=== PATIENT | female | born 1985 | race African-American/Black ===

== ENCOUNTER 2021-11-23 21:47 | Emergency (ER) | payer SELFPAY ==
[2021-11-24 18:54] LABS: SARS-CoV-2 PCR by NAA Not Detected (NotDetected)
== END 2021-11-23 22:23 | disposition home or self-care (01) ==
LOC: CSHERS 21:47
DX: R09.81 Nasal congestion (principal); Z20.822 Contact with and (suspected) exposure to COVID-19; E11.9 Type 2 diabetes mellitus without complications
CPT/HCPCS: 87804; 99283; U0003; U0005

== ENCOUNTER 2022-05-26 02:00 | Emergency (ER) | payer MEDICAID ==
[2022-05-26] MEDS ORDERED: Dexamethasone 4 mg/ml Vial ONE (06:30)
== END 2022-05-26 06:42 | disposition home or self-care (01) ==
LOC: CSHERS 02:00
DX: J10.1 Influenza due to other identified influenza virus with other respiratory manifestations (principal); E11.9 Type 2 diabetes mellitus without complications
CPT/HCPCS: 87804; 99283; J1100

== ENCOUNTER 2023-08-13 17:20 | Inpatient (IN) | payer MEDICAID, OTHER, SELFPAY ==
[2023-08-13] MEDS ORDERED: hydrALAZINE 20 MG/ML VIAL SLOW IVP PRN ×3 (17:42→18:44)
[2023-08-13 17:55] VITALS: BMI 39.3
[2023-08-13 18:10] LABS: Creatinine, Urine 212.12 mg/dL (47-110)
[2023-08-13] MEDS ORDERED: Magnesium Sulfate 20 gm/500 ml 20 GM/500 ML BAG ONE (18:28)
[2023-08-13 18:32] LABS: Amphetamine Not Detected (NotDetected); Barbiturates Screen Not Detected (NotDetected); Benzodiazepine Screen Not Detected (NotDetected); Cocaine Metabolite Screen Not Detected (NotDetected); Methadone Not Detected (NotDetected); Methamphetamine Not Detected (NotDetected); Opiate Screen Not Detected (NotDetected); Oxycodone Screen Not Detected (NotDetected); Phencyclidine (PCP) Not Detected (NotDetected); THC/Cannabinoid Screen Not Detected (NotDetected); Tricyclic Screen Not Detected (NotDetected)
[2023-08-13] MEDS ORDERED: Lorazepam 2 MG/ML VIAL SLOW IVP PRN (18:44)
[2023-08-13] MEDS ORDERED: Ondansetron PF 4 MG/2 ML Vial IVP PRN (18:44)
[2023-08-13] MEDS ORDERED: Ibuprofen 800 MG TAB PO PRN (18:44)
[2023-08-13] MEDS ORDERED: HYDROcodone/Acetaminophen 5/325 mg Tablet PO PRN ×2 (18:44)
[2023-08-13] MEDS ORDERED: Carboprost 250 MCG/ML AMP IM PRN (18:44)
[2023-08-13] MEDS ORDERED: Lidocaine 1% (PF) 30 ML VIAL SC PRN (18:44)
[2023-08-13] MEDS ORDERED: Promethazine HCl 25 MG/ML VIAL IM PRN (18:44)
[2023-08-13] MEDS ORDERED: Diphenoxylate HCl/Atropine Tablet PO PRN ×2 (18:44)
[2023-08-13] MEDS ORDERED: fentaNYL 50 mcg/mL 1 mL Vial SLOW IVP PRN (18:44)
[2023-08-13] MEDS ORDERED: Misoprostol 200 MCG TAB PR PRN (18:44)
[2023-08-13] MEDS ORDERED: Labetalol HCl 100 MG/20 ML VIAL SLOW IVP PRN ×2 (18:44)
[2023-08-13] MEDS ORDERED: Calcium Gluc 4.6 MEQ/10 ML (100 MG/ML) SLOW IVP PRN (18:44)
[2023-08-13] MEDS ORDERED: Penicillin G Potassium 5 MILL.UNITS in Sodium Chloride 0.9% 100 ML IVPB SCH (18:45)
[2023-08-13] MEDS ORDERED: Oxytocin 30 units/NS 500 ML 500 ML IV SCH ×2 (18:45)
[2023-08-13] MEDS ORDERED: Glucagon 1 MG/ML KIT IM PRN (19:00)
[2023-08-13] MEDS ORDERED: Dextrose 50% Abboject 50 ML SYRINGE SLOW IVP PRN (19:00)
[2023-08-13] MEDS ORDERED: HumaLOG 300 UNITS/3 ML VIAL SC PRN (19:00)
[2023-08-13] MEDS ORDERED: Dextrose 5% in Water 1,000 ML IV PRN (19:00)
[2023-08-13 19:34] LABS: ALT (SGPT) 20 U/L (8-55); AST (SGOT) 21 U/L (5-34); Albumin 3.4 g/dL (3.5-5.0); Alkaline Phosphatase 183 U/L (40-110); Anion Gap 13 mmol/L (10-20); BUN (Urea Nitrogen) 9 mg/dL (7.0-18.7); Bilirubin, Total 0.2 mg/dL (0.2-1.2); Calc. Creatinine Clearance 177 mL/min (70-130); Calcium 9.5 mg/dL (7.8-10.44); Carbon Dioxide 24 mmol/L (22-29); Chloride 106 mmol/L (98-107); Estimated GFR 100; Globulin 3.5 g/dL (2.4-3.5); Glucose 75 mg/dL (70-105); Potassium 4.3 mmol/L (3.5-5.1); Protein, Total 6.9 g/dL (6.0-8.3); Sodium 139 mmol/L (136-145)
[2023-08-13 19:40] LABS: #Eosinphils 0.2 10x3/uL (0.0-0.5); #Monocytes 0.9 10x3/uL (0.0-1.1); #Neutrophils 6.3 10x3/uL (1.5-8.4); %Basophils 0.4 % (0.0-2.0); %Eosinophils 1.8 % (0.0-6.0); %Lymphocytes 29.5 % (18.0-47.0); %Monocytes 8.8 % (0.0-10.0); Hematocrit 33.8 % (34.9-44.5); Hemoglobin 11.3 g/dL (12.0-15.5); Mean Corpuscular HGB CONC 33.4 g/dL (32.0-36.0); Mean Corpuscular Hemoglobin 25.9 pg (27.0-33.0); Mean Corpuscular Volume 77.3 fl (81.6-98.3); Mean Platelet Volume 10.7 fl (7.4-10.4); Platelet Count 286 10x3/uL (150-450); RBC Distribution Width 13.9 % (11.5-14.5); Red Blood Cell (RBC) Count 4.37 10x6/uL (3.90-5.03); White Blood Cell (WBC) Count 10.7 10x3/uL (3.5-10.5)
[2023-08-13] MEDS ORDERED: Penicillin G 2.5 MILL.units 2.5 MILL.UNITS in Premix 1 BAG IVPB SCH (22:45)
[2023-08-13 23:00] LABS: HBSAg Index 0.16 S/CO (0-0.99); Hep B Surf Ag - L&D Non-Reactive S/CO (NonReactive)
[2023-08-13 23:02] LABS: Syphilis Antibody Nonreactive (Nonreactive); Syphilis Antibody Index 0.09 S/CO (<1.00 Non-Reactive)
[2023-08-13] MEDS: Acetaminophen 500 MG TAB PO PRN (23:55)
[2023-08-14] MEDS: Misoprostol 100 MCG TAB VAG SCH ×2 (09:34→12:47)
[2023-08-14] MEDS: Acetaminophen 500 MG TAB PO PRN (12:24)
[2023-08-14] MEDS: Magnesium Sulfate 20 gm/500 ml 20 GM/500 ML BAG IVPB SCH ×2 (12:26→21:32)
[2023-08-14] MEDS ORDERED: diphenhydrAMINE 25 MG CAP PO SCH (12:45)
[2023-08-14] MEDS ORDERED: CEFAZOLIN 2 GM VIAL ONE (14:30)
[2023-08-14] MEDS ORDERED: Famotidine/PF 20 mg/2ml Vial SLOW IVP PRN (14:36)
[2023-08-14] MEDS ORDERED: Bicitra 30 ML UDCUP PO PRN (14:36)
[2023-08-14] MEDS ORDERED: CEFAZOLIN 2 GM in Sodium Chloride 0.9% 100 ML IVPB SCH (14:45)
[2023-08-14] MEDS ORDERED: Promethazine HCl 25 MG SUPP PR PRN ×2 (14:53→16:03)
[2023-08-14] MEDS ORDERED: Moisturizing Cream (Eucerin) 113 GM JAR TOP PRN ×2 (14:53→16:03)
[2023-08-14] MEDS ORDERED: fentaNYL 50 mcg/mL 1 mL Vial SLOW IVP PRN ×3 (14:53→20:28)
[2023-08-14] MEDS ORDERED: Promethazine HCl 25 MG/ML VIAL IM PRN ×2 (14:53→16:03)
[2023-08-14] MEDS ORDERED: Ondansetron PF 4 MG/2 ML Vial IVP PRN ×4 (14:53→16:03)
[2023-08-14] MEDS ORDERED: Naloxone HCl 0.4 mg/ml Vial IV PRN ×2 (14:53→16:03)
[2023-08-14] MEDS ORDERED: diphenhydrAMINE 50 MG/ML VIAL IVP PRN ×2 (14:53→16:03)
[2023-08-14] MEDS ORDERED: Naloxone HCl 0.4 mg/ml Vial IVP PRN ×4 (14:53→16:03)
[2023-08-14] MEDS ORDERED: Ketorolac Tromethamine 30 MG (1 mL) VIAL IVP PRN ×2 (14:53→16:03)
[2023-08-14] MEDS ORDERED: Meperidine HCl/PF 25 MG (1 mL) VIAL SLOW IVP PRN ×2 (14:53→16:03)
[2023-08-14] MEDS ORDERED: Morphine PF 10 MG/10 ML VIAL ONE (14:59)
[2023-08-14] MEDS ORDERED: PHENYLEPHRINE-NS 100 MCG/ML 10 ML SYRINGE ONE ×2 (14:59→16:38)
[2023-08-14] MEDS ORDERED: Ketorolac Tromethamine 30 MG (1 mL) VIAL ONE (14:59)
[2023-08-14] MEDS ORDERED: Phenylephrine 40 MG/NS 250 ML 250 ML ONE (14:59)
[2023-08-14] MEDS ORDERED: Dexamethasone 4 mg/ml Vial ONE (14:59)
[2023-08-14] MEDS ORDERED: Oxytocin 10 UNITS/ML VIAL ONE ×3 (14:59→16:34)
[2023-08-14] MEDS ORDERED: Ondansetron PF 4 MG/2 ML Vial ONE (14:59)
[2023-08-14] MEDS ORDERED: Communication Order-Pharmacy FS SCH ×2 (15:00→16:15)
[2023-08-14] MEDS ORDERED: Ketorolac Tromethamine 30 MG (1 mL) VIAL IVP SCH ×3 (15:30→18:00)
[2023-08-14] MEDS ORDERED: fentaNYL 50 mcg/mL 1 mL Vial ONE (15:33)
[2023-08-14] MEDS ORDERED: Tranexamic Acid 1,000 MG/10 ML VIAL ONE ×2 (16:04→16:07)
[2023-08-14 16:45] LABS: Analyzer IN Cardio CS NICU; RapidComm Collect By CBN; pH (Cord, venous) 7.261 (7.250-7.350)
[2023-08-14 16:46] LABS: Analyzer IN Cardio CS NICU; RapidComm Collect By CBN
[2023-08-14] MEDS ORDERED: Erythromycin Base 0.5% Oint 1 GM TUBE ONE (16:56)
[2023-08-14] MEDS ORDERED: Phytonadione Neonatal 1 MG/0.5 ML AMP ONE (16:56)
[2023-08-14] MEDS ORDERED: Carboprost 250 MCG/ML AMP ONE (17:44)
[2023-08-14] MEDS ORDERED: NIFEdipine XL 30 MG ER.TAB PO SCH (18:00)
[2023-08-14] MEDS ORDERED: PACU-Morphine 4MG/ML VIAL SLOW IVP PRN (20:00)
[2023-08-14] MEDS ORDERED: Morphine 4 MG/ML VIAL SLOW IVP PRN (20:27)
[2023-08-15 04:34] LABS: Hematocrit 29.6 % (34.9-44.5); Hemoglobin 9.5 g/dL (12.0-15.5); Mean Corpuscular HGB CONC 32.1 g/dL (32.0-36.0); Mean Corpuscular Hemoglobin 25.2 pg (27.0-33.0); Mean Corpuscular Volume 78.5 fl (81.6-98.3); Mean Platelet Volume 10.4 fl (7.4-10.4); Platelet Count 269 10x3/uL (150-450); RBC Distribution Width 14.2 % (11.5-14.5); Red Blood Cell (RBC) Count 3.77 10x6/uL (3.90-5.03); White Blood Cell (WBC) Count 11.1 10x3/uL (3.5-10.5)
[2023-08-15 04:49] LABS: ALT (SGPT) 28 U/L (8-55); AST (SGOT) 33 U/L (5-34); Albumin 2.9 g/dL (3.5-5.0); Alkaline Phosphatase 147 U/L (40-110); Anion Gap 15 mmol/L (10-20); BUN (Urea Nitrogen) 8 mg/dL (7.0-18.7); Bilirubin, Total 0.5 mg/dL (0.2-1.2); Calc. Creatinine Clearance 187 mL/min (70-130); Carbon Dioxide 21 mmol/L (22-29); Chloride 99 mmol/L (98-107); Estimated GFR 107; Globulin 3.6 g/dL (2.4-3.5); Glucose 125 mg/dL (70-105); Potassium 4.5 mmol/L (3.5-5.1); Protein, Total 6.5 g/dL (6.0-8.3); Sodium 130 mmol/L (136-145)
[2023-08-15] MEDS ORDERED: Calcium Gluc 4.6 MEQ/10 ML (100 MG/ML) SLOW IVP PRN (06:59)
[2023-08-15] MEDS ORDERED: Labetalol HCl 100 MG/20 ML VIAL SLOW IVP PRN ×2 (06:59)
[2023-08-15] MEDS ORDERED: Misoprostol 200 MCG TAB PR PRN (06:59)
[2023-08-15] MEDS ORDERED: Lorazepam 2 MG/ML VIAL SLOW IVP PRN (06:59)
[2023-08-15] MEDS ORDERED: Ondansetron PF 4 MG/2 ML Vial IVP PRN (06:59)
[2023-08-15] MEDS ORDERED: hydrALAZINE 20 MG/ML VIAL SLOW IVP PRN ×3 (06:59)
[2023-08-15] MEDS ORDERED: Lanolin Ointment 7 GM TUBE TOP PRN (06:59)
[2023-08-15] MEDS ORDERED: Simethicone Chewable 80 MG TAB PO PRN (06:59)
[2023-08-15] MEDS ORDERED: Boostrix 0.5 ML (Tdap) VIAL (>/=7 yrs of age) IM ONE (06:59)
[2023-08-15] MEDS ORDERED: Oxytocin 30 units/NS 500 ML 500 ML IV SCH (07:00)
[2023-08-15] MEDS: Magnesium Sulfate 20 gm/500 ml 20 GM/500 ML BAG IVPB SCH (07:39)
[2023-08-15] MEDS: Prenatal Vitamin 1 TAB PO SCH (09:14)
[2023-08-15] MEDS: Ferrous Sulfate 325 MG TAB PO SCH ×2 (09:14→21:57)
[2023-08-15] MEDS: NIFEdipine XL 30 MG ER.TAB PO SCH (09:20)
[2023-08-15] MEDS: Docusate 100 MG CAP PO SCH ×2 (13:00→18:01)
[2023-08-15] MEDS: Acetaminophen 500 MG TAB PO SCH (13:01)
[2023-08-15] MEDS ORDERED: Ibuprofen 800 MG TAB PO SCH (22:00)
[2023-08-16] MEDS: HYDROcodone/Acetaminophen 5/325 mg Tablet PO PRN ×5 (01:15→21:01)
[2023-08-16 03:42] LABS: Hemoglobin 9.5 g/dL (12.0-15.5); Mean Corpuscular HGB CONC 33.9 g/dL (32.0-36.0); Mean Corpuscular Hemoglobin 26.3 pg (27.0-33.0); Mean Corpuscular Volume 77.6 fl (81.6-98.3); Platelet Count 269 10x3/uL (150-450); RBC Distribution Width 14.5 % (11.5-14.5); Red Blood Cell (RBC) Count 3.61 10x6/uL (3.90-5.03); White Blood Cell (WBC) Count 11.2 10x3/uL (3.5-10.5)
[2023-08-16] MEDS: diphenhydrAMINE 25 MG CAP PO PRN ×2 (05:15→21:06)
[2023-08-16] MEDS: Ferrous Sulfate 325 MG TAB PO SCH (07:16)
[2023-08-16] MEDS: Ibuprofen 800 MG TAB PO SCH ×3 (08:24→21:06)
[2023-08-16] MEDS: Docusate 100 MG CAP PO SCH ×2 (08:24→21:01)
[2023-08-16] MEDS: Prenatal Vitamin 1 TAB PO SCH (08:24)
[2023-08-16] MEDS: NIFEdipine XL 30 MG ER.TAB PO SCH (08:27)
[2023-08-16] MEDS ORDERED: NIFEdipine XL 30 MG ER.TAB PO SCH (09:45)
[2023-08-17] MEDS: HYDROcodone/Acetaminophen 5/325 mg Tablet PO PRN ×4 (04:01→21:02)
[2023-08-17] MEDS: Ferrous Sulfate 325 MG TAB PO SCH ×3 (04:02→21:01)
[2023-08-17] MEDS: Ibuprofen 800 MG TAB PO SCH ×3 (06:44→23:50)
[2023-08-17] MEDS: Docusate 100 MG CAP PO SCH ×2 (08:04→21:02)
[2023-08-17] MEDS: Prenatal Vitamin 1 TAB PO SCH (08:04)
[2023-08-17] MEDS: NIFEdipine XL 90 MG ER.TAB PO SCH (08:05)
[2023-08-17] MEDS ORDERED: NIFEdipine XL 60 MG ER.TAB PO SCH (09:00)
[2023-08-17] MEDS: Lantus 1000 UNITS/10 ML VIAL SC SCH (10:42)
[2023-08-17] MEDS: diphenhydrAMINE 25 MG CAP PO PRN (21:06)
[2023-08-18] MEDS: HYDROcodone/Acetaminophen 5/325 mg Tablet PO PRN ×2 (02:43→23:15)
[2023-08-18] MEDS: Ibuprofen 800 MG TAB PO SCH ×3 (06:07→23:12)
[2023-08-18] MEDS: Acetaminophen 500 MG TAB PO SCH (07:04)
[2023-08-18] MEDS: Misoprostol 100 MCG TAB VAG SCH ×2 (07:04→07:06)
[2023-08-18] MEDS ORDERED: Furosemide 20 MG (2 mL) VIAL SLOW IVP SCH (08:00)
[2023-08-18] MEDS: Lantus 1000 UNITS/10 ML VIAL SC SCH (08:21)
[2023-08-18] MEDS: Prenatal Vitamin 1 TAB PO SCH (08:21)
[2023-08-18] MEDS: Docusate 100 MG CAP PO SCH ×2 (08:21→21:21)
[2023-08-18] MEDS: NIFEdipine XL 90 MG ER.TAB PO SCH (08:21)
[2023-08-18] MEDS: Ferrous Sulfate 325 MG TAB PO SCH ×2 (08:21→21:21)
[2023-08-18] MEDS ORDERED: Labetalol HCl 200 MG TAB PO SCH (11:00)
[2023-08-18] MEDS: Labetalol HCl 200 MG TAB PO SCH (21:21)
[2023-08-18] MEDS: diphenhydrAMINE 25 MG CAP PO PRN (22:05)
[2023-08-19] MEDS: diphenhydrAMINE 25 MG CAP PO PRN (02:15)
[2023-08-19] MEDS: HYDROcodone/Acetaminophen 5/325 mg Tablet PO PRN ×2 (04:12→20:03)
[2023-08-19] MEDS: Ibuprofen 800 MG TAB PO SCH ×2 (06:12→14:31)
[2023-08-19] MEDS: Docusate 100 MG CAP PO SCH ×2 (08:02→20:02)
[2023-08-19] MEDS: NIFEdipine XL 90 MG ER.TAB PO SCH (08:02)
[2023-08-19] MEDS: Labetalol HCl 200 MG TAB PO SCH ×2 (08:02→20:02)
[2023-08-19] MEDS: Ferrous Sulfate 325 MG TAB PO SCH ×2 (08:03→20:02)
[2023-08-19] MEDS: Prenatal Vitamin 1 TAB PO SCH (08:03)
[2023-08-19] MEDS: Lantus 1000 UNITS/10 ML VIAL SC SCH (08:03)
[2023-08-19 19:25] VITALS: BP 158/88; TEMP 98.3
== END 2023-08-19 20:09 | disposition home or self-care (01) | DRG 788 ==
LOC: CSHLD/OP 17:20 → CSHLD 18:54 → CSHPP 08-15 18:30
PROVIDERS: ADMIT Obstetrics & Gynecology; ATTEND Obstetrics & Gynecology
PROC: 10D00Z1 Extraction of Products of Conception, Low, Open Approach (ICD-10-PCS; principal; 2023-08-14)
PROC: 3E0P7VZ Introduction of Hormone into Female Reproductive, Via Natural or Artificial Opening (ICD-10-PCS; 2023-08-14)
PROC: 3E0334Z Introduction of Serum, Toxoid and Vaccine into Peripheral Vein, Percutaneous Approach (ICD-10-PCS; 2023-08-14)
DX: O14.14 Severe pre-eclampsia complicating childbirth (principal); O24.429 Gestational diabetes mellitus in childbirth, unspecified control; Z3A.34 34 weeks gestation of pregnancy; O99.824 Streptococcus B carrier state complicating childbirth; Z37.0 Single live birth; O76 Abnormality in fetal heart rate and rhythm complicating labor and delivery; M79.89 Other specified soft tissue disorders; O99.892 Other specified diseases and conditions complicating childbirth; O99.214 Obesity complicating childbirth; O09.513 Supervision of elderly primigravida, third trimester; E78.5 Hyperlipidemia, unspecified; A59.9 Trichomoniasis, unspecified; O26.893 Other specified pregnancy related conditions, third trimester; Z67.21 Type B blood, Rh negative
CPT/HCPCS: 36415; 36416; 51702; 80053; 80306; 82570; 82805; 84156; 85025; 85027; 85461; 86780; 86850; 86900; 86901; 87340; 88307; 90384; 96372; 99285; J0360; J1100; J1815; J1885; J1940; J2270; J2274; J2405; J2590; J3010; J3475; J3490

== ENCOUNTER 2023-09-15 22:05 | Inpatient (IN) | payer MEDICAID, OTHER ==
[2023-09-15] MEDS ORDERED: Ondansetron PF 4 MG/2 ML Vial IVP PRN (23:00)
[2023-09-15] MEDS ORDERED: Docusate 100 MG CAP PO PRN (23:00)
[2023-09-15] MEDS ORDERED: Promethazine HCl 25 MG/ML VIAL IM PRN (23:00)
[2023-09-15] MEDS ORDERED: Lorazepam 2 MG/ML VIAL SLOW IVP PRN (23:00)
[2023-09-15] MEDS ORDERED: hydrALAZINE 20 MG/ML VIAL SLOW IVP PRN ×2 (23:00)
[2023-09-15] MEDS ORDERED: Labetalol HCl 100 MG/20 ML VIAL SLOW IVP PRN ×3 (23:00)
[2023-09-15] MEDS ORDERED: Zolpidem Tartrate 5 MG TAB PO PRN (23:00)
[2023-09-15] MEDS ORDERED: Calcium Gluc 4.6 MEQ/10 ML (100 MG/ML) SLOW IVP PRN (23:00)
[2023-09-15] MEDS: Lactated Ringer's 1,000 ML IV SCH (23:22)
[2023-09-15] MEDS: Magnesium Sulfate 20 gm/500 ml 20 GM/500 ML BAG IVPB SCH (23:24)
[2023-09-16 00:06] VITALS: BMI 36.4
[2023-09-16] MEDS: Labetalol HCl 200 MG TAB PO SCH ×2 (00:25)
[2023-09-16 00:48] LABS: Bilirubin Neg (Negative); Blood, Urine 150 (Negative); Clarity Clear (Clear); Glucose, Urine (Dipstick) Normal (Negative); Ketone, Urine Negative (Negative); Leukocyte Negative (Negative); Nitrite Negative (Negative); Protein, Urine (Dipstick) 30 mg/dl (Neg-Trace)
[2023-09-16 00:58] LABS: Bacteria/HPF None Seen HPF (None Seen); CAUTI Indications for Culture Pelvic or flank pain; Squamous Epithelial 0-3 HPF (0-3); Transitional Epithelial 0-3 HPF (None Seen); WBC/HPF 0-3 HPF (0-3)
[2023-09-16 01:01] LABS: Urine Culture Reflex No No
[2023-09-16 03:54] LABS: Hematocrit 30.7 % (34.9-44.5); Hemoglobin 9.8 g/dL (12.0-15.5); Mean Corpuscular HGB CONC 31.9 g/dL (32.0-36.0); Mean Corpuscular Hemoglobin 24.6 pg (27.0-33.0); Mean Corpuscular Volume 77.1 fl (81.6-98.3); Mean Platelet Volume 10.4 fl (7.4-10.4); Platelet Count 320 10x3/uL (150-450); RBC Distribution Width 13.4 % (11.5-14.5); Red Blood Cell (RBC) Count 3.98 10x6/uL (3.90-5.03); White Blood Cell (WBC) Count 7.3 10x3/uL (3.5-10.5)
[2023-09-16 04:08] LABS: ALT (SGPT) 387 U/L (8-55); AST (SGOT) 506 U/L (5-34); Albumin 3.6 g/dL (3.5-5.0); Alkaline Phosphatase 151 U/L (40-110); Anion Gap 15 mmol/L (10-20); BUN (Urea Nitrogen) 8 mg/dL (7.0-18.7); Bilirubin, Total 1.2 mg/dL (0.2-1.2); Calc. Creatinine Clearance 152 mL/min (70-130); Calcium 9.1 mg/dL (7.8-10.44); Carbon Dioxide 24 mmol/L (22-29); Chloride 104 mmol/L (98-107); Estimated GFR 94; Globulin 3.4 g/dL (2.4-3.5); Glucose 152 mg/dL (70-105); Potassium 3.8 mmol/L (3.5-5.1); Sodium 139 mmol/L (136-145)
[2023-09-16] MEDS ORDERED: Glucagon 1 MG/ML KIT IM PRN (07:23)
[2023-09-16] MEDS ORDERED: Dextrose 5% in Water 1,000 ML IV PRN (07:23)
[2023-09-16] MEDS ORDERED: Dextrose 50% Abboject 50 ML SYRINGE SLOW IVP PRN (07:23)
[2023-09-16] MEDS: HumaLOG 300 UNITS/3 ML VIAL SC PRN ×2 (07:42→20:39)
[2023-09-16] MEDS: Lantus 1000 UNITS/10 ML VIAL SC SCH (09:30)
[2023-09-16 10:03] LABS: Acetaminophen Less than 10 mcg/mL (10.0-30.0)
[2023-09-16 11:57] LABS: ALT (SGPT) 428 U/L (8-55); AST (SGOT) 427 U/L (5-34); Albumin 3.9 g/dL (3.5-5.0); Alkaline Phosphatase 148 U/L (40-110); Anion Gap 12 mmol/L (10-20); BUN (Urea Nitrogen) 5 mg/dL (7.0-18.7); Calc. Creatinine Clearance 150 mL/min (70-130); Carbon Dioxide 25 mmol/L (22-29); Chloride 104 mmol/L (98-107); Estimated GFR 93; Globulin 3.7 g/dL (2.4-3.5); Glucose 224 mg/dL (70-105); Potassium 4.1 mmol/L (3.5-5.1); Protein, Total 7.6 g/dL (6.0-8.3); Sodium 137 mmol/L (136-145)
[2023-09-16 14:09] LABS: Hep A IgM AB Non-Reactive S/CO (NonReactive); Hep A IgM S/CO 0.14 S/CO (0-0.79); Hep C IgG Ab Non-Reactive S/CO (NonReactive); Hep C Index 0.14 S/CO (0-0.79)
[2023-09-17] MEDS: NIFEdipine XL 90 MG ER.TAB PO SCH (02:15)
[2023-09-17 03:55] LABS: ALT (SGPT) 417 U/L (8-55); AST (SGOT) 319 U/L (5-34); Albumin 3.8 g/dL (3.5-5.0); Alkaline Phosphatase 181 U/L (40-110); Anion Gap 14 mmol/L (10-20); BUN (Urea Nitrogen) 8 mg/dL (7.0-18.7); Bilirubin, Total 0.4 mg/dL (0.2-1.2); Calc. Creatinine Clearance 143 mL/min (70-130); Calcium 8.8 mg/dL (7.8-10.44); Carbon Dioxide 24 mmol/L (22-29); Chloride 104 mmol/L (98-107); Estimated GFR 88; Globulin 3.7 g/dL (2.4-3.5); Glucose 215 mg/dL (70-105); Potassium 4.1 mmol/L (3.5-5.1); Protein, Total 7.5 g/dL (6.0-8.3); Sodium 138 mmol/L (136-145)
[2023-09-17] MEDS ORDERED: Glucagon 1 MG/ML KIT IM PRN (07:31)
[2023-09-17] MEDS ORDERED: Dextrose 50% Abboject 50 ML SYRINGE SLOW IVP PRN (07:31)
[2023-09-17] MEDS ORDERED: Dextrose 5% in Water 1,000 ML IV PRN (07:31)
[2023-09-17] MEDS ORDERED: Metoclopramide HCl 10 MG TAB PO PRN (07:56)
[2023-09-17] MEDS: Lantus 1000 UNITS/10 ML VIAL SC SCH ×3 (09:35→21:13)
[2023-09-17] MEDS: Enoxaparin 40 MG (0.4 mL) SYRINGE SC SCH (10:22)
[2023-09-17] MEDS: HumaLOG 300 UNITS/3 ML VIAL SC SCH (10:50)
[2023-09-17 12:14] LABS: Hep B Surface AG-Rflx Sendout Negative (Negative); Hepatitis B Core Total Negative (Negative); Hepatitis B Surface AB-Sendout Non Reactive (.)
[2023-09-17] MEDS: HumaLOG 300 UNITS/3 ML VIAL SC PRN (13:50)
[2023-09-17] MEDS ORDERED: Lidocaine 2% Viscous Solution 20 ML, Aluminum & Magnesium Hydroxide 30 ML, Donnatal Eli... SSW SCH (14:30)
[2023-09-17] MEDS: Ibuprofen 800 MG TAB PO PRN (14:32)
[2023-09-17] MEDS: Acetaminophen 500 MG TAB PO PRN (14:32)
[2023-09-17] MEDS: Lidocaine 2% Viscous 10 mL, Alum & Magn 30 mL SSW SCH (17:01)
[2023-09-17] MEDS: Aspirin Chewable 81 MG TAB PO SCH (17:02)
[2023-09-17] MEDS: Magnesium Sulfate 20 gm/500 ml 20 GM/500 ML BAG ONE (19:36)
[2023-09-18] MEDS: HumaLOG 300 UNITS/3 ML VIAL SC SCH (08:15)
[2023-09-18] MEDS: Aspirin Chewable 81 MG TAB PO SCH (08:15)
[2023-09-18 08:41] VITALS: BP 120/69; TEMP 98.3
== END 2023-09-18 10:13 | disposition home or self-care (01) | DRG 776 ==
LOC: OBSVTOIN 23:04 → CSHLD 23:04 → CSHPP 09-17 01:46
PROVIDERS: ADMIT Obstetrics & Gynecology; ATTEND Obstetrics & Gynecology
DX: O14.15 Severe pre-eclampsia, complicating the puerperium (principal); O24.13 Pre-existing type 2 diabetes mellitus, in the puerperium; Z79.4 Long term (current) use of insulin; Z79.899 Other long term (current) drug therapy; O90.81 Anemia of the puerperium; D64.9 Anemia, unspecified; E11.65 Type 2 diabetes mellitus with hyperglycemia
CPT/HCPCS: 36415; 36416; 51702; 71045; 71275; 76705; 80053; 80143; 80306; 81001; 83615; 83690; 83735; 83880; 84484; 84550; 84702; 85025; 85027; 85379; 85610; 85730; 86704; 86706; 86709; 86803; 87086; 87340; 87522; 93005; 96365; 96375; 96376; 80307; J1815; J3475; J7120

== ENCOUNTER 2025-04-11 10:00 | Inpatient (IN) | payer OTHER, SELFPAY ==
[2025-04-11] MEDS ORDERED: Iopamidol 300 61% 100 ML VIAL FS ONE (10:03)
[2025-04-11] MEDS ORDERED: Ondansetron PF 4 MG/2 ML Vial ONE (10:25)
[2025-04-11] MEDS ORDERED: Ketorolac Tromethamine 30 MG (1 mL) VIAL ONE (10:25)
[2025-04-11 10:29] LABS: #Basophils 0.05 10x3/uL (0.0-0.2); #Eosinophils 0.20 10x3/uL (0.0-0.5); #Monocytes 0.52 10x3/uL (0.0-1.1); #Neutrophils 4.82 10x3/uL (1.5-8.4); %Basophils 0.6 % (0.0-2.0); %Eosinophils 2.2 % (0.0-6.0); %Lymphocytes 38.0 % (18.0-47.0); %Monocytes 5.7 % (0.0-10.0); %Neutrophils 53.2 % (40.0-75.0); Hematocrit 36.1 % (34.9-44.5); Hemoglobin 13.0 g/dL (12.0-15.5); Mean Corpuscular Hemoglobin 28.6 pg (27.0-33.0); Mean Corpuscular Volume 79.3 fL (81.6-98.3); Platelet Count 323 10x3/uL (150-450); Red Blood Cell (RBC) Count 4.55 10x6/uL (3.90-5.03); White Blood Cell (WBC) Count 9.07 10x3/uL (3.5-10.5)
[2025-04-11 10:39] LABS: BHCG - Serum Negative (NEGATIVE); Pregs Control Background? CLEAR/WHITE (CLR/WHITE); Pregs Control Bar Appear? YES (CONTROL BAR)
[2025-04-11 10:48] LABS: Troponin I 0.013 ng/mL (< 0.028)
[2025-04-11 11:43] LABS: Anion Gap 28 mmol/L (10-20); BUN (Urea Nitrogen) 15 mg/dL (7.0-18.7); Calc. Creatinine Clearance 0 mL/min (70-130); Carbon Dioxide 10 mmol/L (22-29); Chloride 97 mmol/L (98-107); Glucose 382 mg/dL (70-105); Potassium 5.2 mmol/L (3.5-5.1); Sodium 130 mmol/L (136-145)
[2025-04-11 11:44] LABS: Albumin 3.4 g/dL (3.1-4.5); Alkaline Phosphatase 79 U/L (40-110); Bilirubin, Total 0.1 mg/dL (0.3-1.2); Calcium 9.4 mg/dL (7.6-10.4); Globulin 5.8 g/dL (2.4-3.5)
[2025-04-11 11:45] LABS: ALT (SGPT) 23 U/L (Less than 34); AST (SGOT) 34 U/L (11-34); Lipase 408 U/L (8-78)
[2025-04-11 11:46] LABS: Critical Call Chemistry CALLED DROCTOR
[2025-04-11 12:54] LABS: Troponin I 0.011 ng/mL (< 0.028)
[2025-04-11 13:42] LABS: Triglycerides 2059 mg/dL (Less than 150)
[2025-04-11 13:45] LABS: Anion Gap 27 mmol/L (10-20); BUN (Urea Nitrogen) 16 mg/dL (7.0-18.7); Calc. Creatinine Clearance 0 mL/min (70-130); Calcium 9.1 mg/dL (7.6-10.4); Carbon Dioxide 12 mmol/L (22-29); Chloride 97 mmol/L (98-107); Glucose 359 mg/dL (70-105); Potassium 5.2 mmol/L (3.5-5.1); Sodium 131 mmol/L (136-145)
[2025-04-11 13:46] LABS: Albumin 3.2 g/dL (3.1-4.5); Bilirubin, Total 0.2 mg/dL (0.3-1.2); Globulin 5.4 g/dL (2.4-3.5)
[2025-04-11 13:48] LABS: AST (SGOT) 35 U/L (11-34); Alkaline Phosphatase 71 U/L (40-110); Cholesterol 339 mg/dL (< 200 Desired)
[2025-04-11 13:49] LABS: ALT (SGPT) 23 U/L (Less than 34); HDL Cholesterol 21 mg/dL (>60 Neg Risk); Lipase 326 U/L (8-78)
[2025-04-11 13:50] LABS: Cardiac Risk 16.1 (Less than 4.5)
[2025-04-11] MEDS ORDERED: NS 0.9% w/ 20 MEQ KCL 1,000 ML IV PRN ×2 (14:40)
[2025-04-11] MEDS ORDERED: Dextrose 50% Abboject 50 ML SYRINGE SLOW IVP PRN (14:40)
[2025-04-11] MEDS ORDERED: Ondansetron PF 4 MG/2 ML Vial IVP PRN (15:03)
[2025-04-11 16:01] LABS: Actual Bicarbonate (HCO3v) 23.5 mEq/L (22-28); Analyzer IN Cardio CS ER; Base Excess -2.5 mEq/L (-2 - +2); Calcium, Ionized (venous) 1.12 mmol/L (1.16-1.32); Chloride (VBG) 100 mmol/L (98-106); Critical Notified Whom: AFZAAD; Hematocrit-VBG 37 % (36.0-47.0); Hemoglobin (Hb) 12.7 g/dL (11.7-15.5); Potassium (VBG) 5.11 mmol/L (3.70-5.30); Puncture Site Other Site; RapidComm Collect By LAB; Sodium 134 mmol/L (133-146)
[2025-04-11] MEDS ORDERED: INSULIN REGULAR IN 0.9 % NACL 100 ML ONE (16:33)
[2025-04-11 16:38] LABS: Anion Gap 17 mmol/L (10-20); BUN (Urea Nitrogen) 15 mg/dL (7.0-18.7); Calc. Creatinine Clearance 0 mL/min (70-130); Calcium 9.1 mg/dL (7.8-10.44); Carbon Dioxide 21 mmol/L (22-29); Chloride 98 mmol/L (98-107); Glucose 295 mg/dL (70-105); Magnesium 1.4 mg/dL (1.6-2.6); Potassium 4.6 mmol/L (3.5-5.1); Sodium 131 mmol/L (136-145)
[2025-04-11] MEDS: Electrolyte Replacement Protocol 1 EACH IVPB ONE (18:00)
[2025-04-11] MEDS: Acetaminophen 325 MG TAB PO PRN (19:42)
[2025-04-11] MEDS: Magnesium 2 GM/50 ML(in water) 2 GM in Premix 1 BAG IVPB SCH (20:50)
[2025-04-11] MEDS: Mupirocin 1 GM TUBE NASAL SCH (20:56)
[2025-04-12 01:09] LABS: Anion Gap 22 mmol/L (10-20); BUN (Urea Nitrogen) 11 mg/dL (7.0-18.7); Calc. Creatinine Clearance 177 mL/min (70-130); Calcium 8.0 mg/dL (7.8-10.44); Carbon Dioxide 14 mmol/L (22-29); Chloride 102 mmol/L (98-107); Glucose 184 mg/dL (70-105); Magnesium 1.9 mg/dL (1.6-2.6); Potassium 4.0 mmol/L (3.5-5.1); Sodium 134 mmol/L (136-145)
[2025-04-12 01:35] LABS: #Basophils 0.03 10x3/uL (0.0-0.2); #Eosinophils 0.23 10x3/uL (0.0-0.5); #Monocytes 0.65 10x3/uL (0.0-1.1); #Neutrophils 6.54 10x3/uL (1.5-8.4); %Basophils 0.3 % (0.0-2.0); %Eosinophils 2.1 % (0.0-6.0); %Lymphocytes 33.2 % (18.0-47.0); %Monocytes 5.8 % (0.0-10.0); %Neutrophils 58.3 % (40.0-75.0); Hematocrit 31.8 % (34.9-44.5); Hemoglobin 10.5 g/dL (12.0-15.5); Mean Corpuscular Hemoglobin 26.1 pg (27.0-33.0); Mean Corpuscular Volume 79.1 fL (81.6-98.3); Platelet Count 259 10x3/uL (150-450); Red Blood Cell (RBC) Count 4.02 10x6/uL (3.90-5.03); White Blood Cell (WBC) Count 11.20 10x3/uL (3.5-10.5)
[2025-04-12 02:01] LABS: ALT (SGPT) 19 U/L (Less than 34); AST (SGOT) 25 U/L (11-34); Albumin 3.0 g/dL (3.1-4.5); Alkaline Phosphatase 63 U/L (40-110); Anion Gap 22 mmol/L (10-20); BUN (Urea Nitrogen) 10 mg/dL (7.0-18.7); Bilirubin, Total 0.2 mg/dL (0.3-1.2); Calc. Creatinine Clearance 177 mL/min (70-130); Calcium 8.3 mg/dL (7.8-10.44); Carbon Dioxide 16 mmol/L (22-29); Chloride 101 mmol/L (98-107); Globulin 4.7 g/dL (2.4-3.5); Glucose 204 mg/dL (70-105); Potassium 3.9 mmol/L (3.5-5.1); Sodium 135 mmol/L (136-145); Triglycerides 1641 mg/dL (Less than 150)
[2025-04-12 02:13] LABS: Magnesium 2.0 mg/dL (1.6-2.6)
[2025-04-12] MEDS: D5 1/2 NS w/20 mEq KCL 1,000 ML IV PRN (02:24)
[2025-04-12] MEDS: Magnesium 2 GM/50 ML(in water) 2 GM in Premix 1 BAG IVPB SCH (04:16)
[2025-04-12 06:21] LABS: #Basophils 0.04 10x3/uL (0.0-0.2); #Eosinophils 0.17 10x3/uL (0.0-0.5); #Monocytes 0.58 10x3/uL (0.0-1.1); #Neutrophils 6.76 10x3/uL (1.5-8.4); %Basophils 0.4 % (0.0-2.0); %Eosinophils 1.6 % (0.0-6.0); %Lymphocytes 28.9 % (18.0-47.0); %Monocytes 5.4 % (0.0-10.0); %Neutrophils 63.4 % (40.0-75.0); Hematocrit 30.5 % (34.9-44.5); Hemoglobin 10.0 g/dL (12.0-15.5); Mean Corpuscular Hemoglobin 25.9 pg (27.0-33.0); Mean Corpuscular Volume 79.0 fL (81.6-98.3); Platelet Count 240 10x3/uL (150-450); Red Blood Cell (RBC) Count 3.86 10x6/uL (3.90-5.03); White Blood Cell (WBC) Count 10.66 10x3/uL (3.5-10.5)
[2025-04-12] MEDS: INSULIN REGULAR IN 0.9 % NACL 100 ML IVPB SCH ×2 (06:21→19:50)
[2025-04-12 06:36] LABS: ALT (SGPT) 18 U/L (Less than 34); AST (SGOT) 23 U/L (11-34); Albumin 2.8 g/dL (3.1-4.5); Alkaline Phosphatase 60 U/L (40-110); Anion Gap 17 mmol/L (10-20); BUN (Urea Nitrogen) 6 mg/dL (7.0-18.7); Bilirubin, Total 0.2 mg/dL (0.3-1.2); Calc. Creatinine Clearance 183 mL/min (70-130); Calcium 8.1 mg/dL (7.8-10.44); Carbon Dioxide 17 mmol/L (22-29); Chloride 103 mmol/L (98-107); Globulin 4.5 g/dL (2.4-3.5); Glucose 230 mg/dL (70-105); Lipase 188 U/L (8-78); Magnesium 3.9 mg/dL (1.6-2.6); Potassium 3.8 mmol/L (3.5-5.1); Sodium 133 mmol/L (136-145)
[2025-04-12 06:58] LABS: Influenza A by NAA Not Detected (NotDetected); Influenza B by NAA Not Detected (NotDetected); RSV by NAA Not Detected (NotDetected); SARS-CoV-2 NAA Rapid Test Not Detected (NotDetected)
[2025-04-12 08:29] LABS: Glucose 221 mg/dL (70-105)
[2025-04-12 09:41] LABS: Glucose 205 mg/dL (70-105)
[2025-04-12 10:55] LABS: Glucose 224 mg/dL (70-105)
[2025-04-12 12:43] LABS: Glucose 222 mg/dL (70-105)
[2025-04-12 14:05] LABS: Glucose 201 mg/dL (70-105)
[2025-04-12 15:52] LABS: Glucose 182 mg/dL (70-105)
[2025-04-12] MEDS: SODIUM CHLORIDE IV SCH (19:48)
[2025-04-12] MEDS: DEXTROSE 10% IV SCH (19:48)
[2025-04-12] MEDS: WATER IV SCH (19:48)
[2025-04-12] MEDS: diphenhydrAMINE 25 MG CAP PO PRN (23:09)
[2025-04-13 06:24] LABS: #Basophils Less than 0.03 10x3/uL (0.0-0.2); #Eosinophils 0.24 10x3/uL (0.0-0.5); #Monocytes 0.59 10x3/uL (0.0-1.1); #Neutrophils 4.48 10x3/uL (1.5-8.4); %Basophils 0.2 % (0.0-2.0); %Eosinophils 2.8 % (0.0-6.0); %Lymphocytes 37.0 % (18.0-47.0); %Monocytes 6.9 % (0.0-10.0); %Neutrophils 52.9 % (40.0-75.0); Hematocrit 28.8 % (34.9-44.5); Hemoglobin 9.4 g/dL (12.0-15.5); Mean Corpuscular Hemoglobin 25.8 pg (27.0-33.0); Mean Corpuscular Volume 78.9 fL (81.6-98.3); Platelet Count 236 10x3/uL (150-450); Red Blood Cell (RBC) Count 3.65 10x6/uL (3.90-5.03); White Blood Cell (WBC) Count 8.49 10x3/uL (3.5-10.5)
[2025-04-13 06:46] LABS: ALT (SGPT) 17 U/L (Less than 34); AST (SGOT) 21 U/L (11-34); Albumin 2.5 g/dL (3.1-4.5); Alkaline Phosphatase 59 U/L (40-110); Anion Gap 15 mmol/L (10-20); BUN (Urea Nitrogen) Less than 4 mg/dL (7.0-18.7); Bilirubin, Total 0.2 mg/dL (0.3-1.2); Calc. Creatinine Clearance 202 mL/min (70-130); Calcium 8.1 mg/dL (7.8-10.44); Carbon Dioxide 17 mmol/L (22-29); Chloride 110 mmol/L (98-107); Globulin 3.9 g/dL (2.4-3.5); Glucose 264 mg/dL (70-105); Magnesium 1.9 mg/dL (1.6-2.6); Potassium 4.1 mmol/L (3.5-5.1); Sodium 138 mmol/L (136-145)
[2025-04-13] MEDS: Magnesium 2 GM/50 ML(in water) 2 GM in Premix 1 BAG IVPB SCH (07:57)
[2025-04-13] MEDS: Mupirocin 1 GM TUBE NASAL SCH (12:01)
[2025-04-13] MEDS: Acetaminophen/Codeine 30-300mg Tablet PO PRN (14:23)
[2025-04-13] MEDS ORDERED: Ibuprofen 200 MG TAB PO PRN (20:00)
[2025-04-13] MEDS: Naproxen 500 MG TAB PO SCH (20:37)
[2025-04-14 04:56] LABS: #Basophils Less than 0.03 10x3/uL (0.0-0.2); #Eosinophils 0.25 10x3/uL (0.0-0.5); #Monocytes 0.50 10x3/uL (0.0-1.1); #Neutrophils 3.30 10x3/uL (1.5-8.4); %Basophils 0.3 % (0.0-2.0); %Eosinophils 3.2 % (0.0-6.0); %Lymphocytes 47.4 % (18.0-47.0); %Monocytes 6.4 % (0.0-10.0); %Neutrophils 42.4 % (40.0-75.0); Hematocrit 29.5 % (34.9-44.5); Hemoglobin 9.6 g/dL (12.0-15.5); Mean Corpuscular Hemoglobin 25.8 pg (27.0-33.0); Mean Corpuscular Volume 79.3 fL (81.6-98.3); Platelet Count 255 10x3/uL (150-450); Red Blood Cell (RBC) Count 3.72 10x6/uL (3.90-5.03); White Blood Cell (WBC) Count 7.78 10x3/uL (3.5-10.5)
[2025-04-14 05:12] LABS: ALT (SGPT) 19 U/L (Less than 34); AST (SGOT) 27 U/L (11-34); Albumin 2.6 g/dL (3.1-4.5); Alkaline Phosphatase 54 U/L (40-110); Anion Gap 13 mmol/L (10-20); BUN (Urea Nitrogen) Less than 4 mg/dL (7.0-18.7); Bilirubin, Total 0.2 mg/dL (0.3-1.2); Calc. Creatinine Clearance 206 mL/min (70-130); Calcium 8.0 mg/dL (7.8-10.44); Carbon Dioxide 21 mmol/L (22-29); Chloride 110 mmol/L (98-107); Globulin 3.7 g/dL (2.4-3.5); Glucose 192 mg/dL (70-105); Magnesium 1.7 mg/dL (1.6-2.6); Potassium 3.8 mmol/L (3.5-5.1); Sodium 140 mmol/L (136-145)
[2025-04-14] MEDS: Magnesium 2 GM/50 ML(in water) 2 GM in Premix 1 BAG IVPB SCH (09:49)
[2025-04-14] MEDS: Lisinopril 10 MG TAB PO SCH (23:25)
[2025-04-15 04:09] LABS: ALT (SGPT) 21 U/L (Less than 34); AST (SGOT) 24 U/L (11-34); Albumin 3.1 g/dL (3.1-4.5); Alkaline Phosphatase 68 U/L (40-110); Anion Gap 11 mmol/L (10-20); BUN (Urea Nitrogen) 5 mg/dL (7.0-18.7); Bilirubin, Total 0.2 mg/dL (0.3-1.2); Calc. Creatinine Clearance 189 mL/min (70-130); Calcium 8.8 mg/dL (7.8-10.44); Carbon Dioxide 21 mmol/L (22-29); Chloride 109 mmol/L (98-107); Globulin 4.2 g/dL (2.4-3.5); Glucose 218 mg/dL (70-105); Magnesium 1.6 mg/dL (1.6-2.6); Potassium 4.1 mmol/L (3.5-5.1); Sodium 137 mmol/L (136-145)
[2025-04-15 05:22] VITALS: BMI 44.6
[2025-04-15] MEDS: Magnesium 2 GM/50 ML(in water) 2 GM in Premix 1 BAG IVPB SCH (07:43)
[2025-04-15] MEDS: Lisinopril 10 MG TAB PO SCH (07:44)
[2025-04-15] MEDS: Lantus 1000 UNITS/10 ML VIAL SC SCH (09:53)
[2025-04-15] MEDS: Rosuvastatin 20 MG TAB PO SCH (09:54)
[2025-04-15] MEDS ORDERED: Glucagon 1 MG/ML KIT IM PRN (17:45)
[2025-04-15] MEDS ORDERED: Dextrose 50% Abboject 50 ML SYRINGE SLOW IVP PRN (17:45)
[2025-04-15] MEDS: Naproxen 500 MG TAB PO SCH (22:37)
[2025-04-16 04:34] LABS: Anion Gap 10 mmol/L (10-20); BUN (Urea Nitrogen) 10 mg/dL (7.0-18.7); Calc. Creatinine Clearance 197 mL/min (70-130); Calcium 9.0 mg/dL (7.8-10.44); Carbon Dioxide 25 mmol/L (22-29); Chloride 104 mmol/L (98-107); Glucose 226 mg/dL (70-105); Magnesium 1.3 mg/dL (1.6-2.6); Potassium 4.1 mmol/L (3.5-5.1); Sodium 135 mmol/L (136-145)
[2025-04-16] MEDS: Magnesium 2 GM/50 ML(in water) 2 GM in Premix 1 BAG IVPB SCH (05:38)
[2025-04-16 08:55] VITALS: BP 135/70; TEMP 96.9
[2025-04-16] MEDS: Lantus 1000 UNITS/10 ML VIAL SC SCH (09:02)
[2025-04-16 12:00] VITALS: BMI 44.6
== END 2025-04-16 14:08 | disposition home or self-care (01) | DRG 637 ==
LOC: CSHERS 10:00 → SUATTDRO 10:00 → CSHICU 14:43 → CSHTELE 04-15 14:48
PROVIDERS: ADMIT Internal Medicine; ATTEND Internal Medicine
DX: E11.10 Type 2 diabetes mellitus with ketoacidosis without coma (principal); K85.90 Acute pancreatitis without necrosis or infection, unspecified; N39.0 Urinary tract infection, site not specified; E66.2 Morbid (severe) obesity with alveolar hypoventilation; Z68.41 Body mass index [BMI] 40.0-44.9, adult; I10 Essential (primary) hypertension; E78.5 Hyperlipidemia, unspecified; Z98.891 History of uterine scar from previous surgery; E28.2 Polycystic ovarian syndrome; E11.65 Type 2 diabetes mellitus with hyperglycemia; E78.1 Pure hyperglyceridemia; Z79.84 Long term (current) use of oral hypoglycemic drugs; Z79.899 Other long term (current) drug therapy
CPT/HCPCS: 36415; 36416; 71045; 74177; 80048; 80053; 80061; 82010; 82805; 83036; 83605; 83690; 83735; 84100; 84443; 84478; 84484; 84703; 85025; 85379; 87637; 93005; 94760; 94762; 96374; 96375; J1815; J1885; J3475; J3480; J7042; J7120; Q9967

== ENCOUNTER 2025-06-06 02:20 | Emergency (ER) | payer OTHER ==
[2025-06-06 03:13] LABS: #Basophils Less than 0.03 10x3/uL (0.0-0.2); #Eosinophils 0.14 10x3/uL (0.0-0.5); #Monocytes 0.80 10x3/uL (0.0-1.1); #Neutrophils 9.68 10x3/uL (1.5-8.4); %Basophils 0.2 % (0.0-2.0); %Eosinophils 1.1 % (0.0-6.0); %Lymphocytes 14.4 % (18.0-47.0); %Monocytes 6.4 % (0.0-10.0); %Neutrophils 77.7 % (40.0-75.0); Hematocrit 36.7 % (34.9-44.5); Hemoglobin 12.1 g/dL (12.0-15.5); Mean Corpuscular Hemoglobin 25.6 pg (27.0-33.0); Mean Corpuscular Volume 77.8 fL (81.6-98.3); Platelet Count 278 10x3/uL (150-450); Red Blood Cell (RBC) Count 4.72 10x6/uL (3.90-5.03); White Blood Cell (WBC) Count 12.46 10x3/uL (3.5-10.5)
[2025-06-06 03:30] LABS: ALT (SGPT) 21 U/L (Less than 34); AST (SGOT) 20 U/L (11-34); Albumin 3.8 g/dL (3.1-4.5); Alkaline Phosphatase 78 U/L (40-110); Anion Gap 15 mmol/L (10-20); BUN (Urea Nitrogen) 15 mg/dL (7.0-18.7); Bilirubin, Total 0.4 mg/dL (0.3-1.2); Calc. Creatinine Clearance 0 mL/min (70-130); Calcium 9.2 mg/dL (7.8-10.44); Carbon Dioxide 27 mmol/L (22-29); Chloride 101 mmol/L (98-107); Globulin 4.4 g/dL (2.4-3.5); Glucose 362 mg/dL (70-105); Lipase 60 U/L (8-78); Potassium 4.6 mmol/L (3.5-5.1); Sodium 138 mmol/L (136-145)
[2025-06-06 03:31] LABS: BHCG - Serum Negative (NEGATIVE); Pregs Control Background? CLEAR/WHITE (CLR/WHITE); Pregs Control Bar Appear? YES (CONTROL BAR)
== END 2025-06-06 04:37 | disposition home or self-care (01) ==
LOC: CSHERS 02:20
DX: K52.9 Noninfective gastroenteritis and colitis, unspecified (principal); D72.829 Elevated white blood cell count, unspecified; E11.9 Type 2 diabetes mellitus without complications; I10 Essential (primary) hypertension; E78.5 Hyperlipidemia, unspecified; Z79.899 Other long term (current) drug therapy; Z79.82 Long term (current) use of aspirin; Z79.84 Long term (current) use of oral hypoglycemic drugs; Z79.4 Long term (current) use of insulin
CPT/HCPCS: 36415; 80053; 83690; 84703; 85025; 99284